=== PATIENT | male | born 1945 | race Caucasian/White ===

== ENCOUNTER 2016-04-08 10:26 | Outpatient (CLI) | payer MEDICARE, BC ==
[2016-04-08 11:41] LABS: T4 4.8 ug/dL (4.87-11.72)
[2016-04-08 18:56] LABS: Free T3 3.28 pg/mL (1.71-3.71)
== END 2016-04-08 10:27 | disposition home or self-care (01) ==
LOC: BURLAB 10:26
PROVIDERS: ATTEND Otolaryngology
DX: E03.9 Hypothyroidism, unspecified (principal); E53.8 Deficiency of other specified B group vitamins; E55.9 Vitamin D deficiency, unspecified
CPT/HCPCS: 36415; 82306; 82607; 84436; 84443; 84481

== ENCOUNTER 2016-05-17 11:58 | Outpatient (CLI) | payer MEDICARE, BC ==
[2016-05-17 12:58] LABS: Free T4 (Free Thyroxine) 0.77 ng/dL (0.70-1.48); Thyroid Stimulating Hormone 0.0158 uIU/mL (0.35-4.94)
[2016-05-17 13:55] LABS: Vitamin D, 25 Hydroxy 58.9 ng/mL (> 30.0)
[2016-05-17 18:00] LABS: Free T3 2.49 pg/mL (1.71-3.71)
== END 2016-05-17 11:59 | disposition home or self-care (01) ==
LOC: BURLAB 11:58
PROVIDERS: ATTEND Otolaryngology
DX: E03.9 Hypothyroidism, unspecified (principal)
CPT/HCPCS: 36415; 82306; 82607; 84439; 84443; 84481

== ENCOUNTER 2016-07-01 09:59 | Outpatient (CLI) | payer MEDICARE, BC ==
[2016-07-01 11:39] LABS: T4 4.9 ug/dL (4.87-11.72); Thyroid Stimulating Hormone Less than 0.0025 uIU/mL (0.35-4.94); Vitamin D, 25 Hydroxy 76.9 ng/ml (> 30.0)
== END 2016-07-01 10:00 | disposition home or self-care (01) ==
LOC: BURLAB 09:59
PROVIDERS: ATTEND Otolaryngology
DX: E03.9 Hypothyroidism, unspecified (principal); E53.8 Deficiency of other specified B group vitamins; E55.9 Vitamin D deficiency, unspecified
CPT/HCPCS: 36415; 82306; 82607; 84436; 84443; 84481

== ENCOUNTER 2016-09-17 10:43 | Outpatient (CLI) | payer MEDICARE, BC ==
[2016-09-17 12:26] LABS: Thyroid Stimulating Hormone Less than 0.0025 uIU/mL (0.35-4.94); Vitamin D, 25 Hydroxy 85.5 ng/ml (> 30.0)
[2016-09-17 17:29] LABS: T4 5.6 ug/dL (4.87-11.72)
== END 2016-09-17 10:44 | disposition home or self-care (01) ==
LOC: BURLAB 10:43
PROVIDERS: ATTEND Otolaryngology
DX: E03.9 Hypothyroidism, unspecified (principal); E53.8 Deficiency of other specified B group vitamins; E55.9 Vitamin D deficiency, unspecified
CPT/HCPCS: 36415; 82306; 82607; 84436; 84443; 84481

== ENCOUNTER 2020-01-05 10:10 | Emergency (ER) | payer MEDICARE, BC ==
[2020-01-05 11:22] LABS: ALT (SGPT) 21 U/L (8-55); AST (SGOT) 15 U/L (5-34); Albumin 3.9 g/dL (3.4-4.8); Alkaline Phosphatase 59 U/L (40-110); Anion Gap 14 mmol/L (10-20); BUN (Urea Nitrogen) 16 mg/dL (8.4-25.7); Bilirubin, Total 0.7 mg/dL (0.2-1.2); Calc. Creatinine Clearance 0 mL/min (70-130); Calcium 9.2 mg/dL (7.8-10.44); Carbon Dioxide 24 mmol/L (23-31); Chloride 107 mmol/L (98-107); Estimated GFR-MDRD 68; Globulin 2.4 g/dL (2.4-3.5); Glucose 111 mg/dL (83-110); Potassium 3.8 mmol/L (3.5-5.1); Protein, Total 6.3 g/dL (5.8-8.1); Sodium 141 mmol/L (136-145)
== END 2020-01-05 11:31 | disposition home or self-care (01) ==
LOC: BURERS 10:10
DX: M62.830 Muscle spasm of back (principal); I10 Essential (primary) hypertension; E03.9 Hypothyroidism, unspecified; Z79.899 Other long term (current) drug therapy; X58.XXXA Exposure to other specified factors, initial encounter
CPT/HCPCS: 80053; 84484; 93005

== ENCOUNTER 2021-11-23 13:09 | Emergency (ER) | payer MEDICARE, BC ==
[2021-11-23] MEDS ORDERED: Iopamidol 370 76% 100 ML VIAL FS ONE (13:10)
[2021-11-23 13:30] LABS: #Basophils 0.1 thou/uL (0.0-0.2); #Eosinphils 0.2 thou/uL (0.0-0.7); #Lymphocytes 2.3 thou/uL (1.20-3.40); #Monocytes 0.5 thou/uL (0.11-0.59); #Neutrophils 2.9 thou/uL (1.40-6.50); %Eosinophils 3.5 % (0.0-10.0); %Lymphocytes 38.4 % (21.0-51.0); %Monocytes 7.9 % (0.0-10.0); %Neutrophils 49.2 % (42.0-75.0); Hemoglobin 16.5 g/dL (14.0-18.0); Mean Corpuscular Hemoglobin 32.8 pg (27.0-31.0); Mean Corpuscular Volume 99.5 fL (78.0-98.0); Mean Platelet Volume 8.7 fL (7.4-10.4); Platelet Count 189 thou/uL (130-400); RBC Distribution Width 12.5 % (11.5-14.5); Red Blood Cell (RBC) Count 5.02 mill/uL (4.70-6.10); White Blood Cell (WBC) Count 5.9 thou/uL (4.8-10.8)
[2021-11-23 13:44] LABS: ALT (SGPT) Less than 7 U/L (8-55); AST (SGOT) 16 U/L (5-34); Albumin 4.1 g/dL (3.4-4.8); Alkaline Phosphatase 83 U/L (40-110); Anion Gap 11 mmol/L (10-20); BUN (Urea Nitrogen) 21 mg/dL (8.4-25.7); Bilirubin, Total 0.9 mg/dL (0.2-1.2); Calc. Creatinine Clearance 0 mL/min (70-130); Calcium 9.7 mg/dL (7.8-10.44); Carbon Dioxide 29 mmol/L (23-31); Chloride 107 mmol/L (98-107); Estimated GFR 60; Globulin 2.5 g/dL (2.4-3.5); Glucose 96 mg/dL (83-110); Potassium 3.8 mmol/L (3.5-5.1); Protein, Total 6.6 g/dL (5.8-8.1); Sodium 143 mmol/L (136-145)
[2021-11-23] MEDS ORDERED: Aspirin Chewable 81 MG TAB ONE (13:54)
[2021-11-23 14:48] LABS: SARS-CoV-2 NAA Rapid Test Not Detected (NotDetected)
== END 2021-11-23 14:26 | disposition short-term general hospital (02) ==
LOC: BURERS 13:09
DX: S00.81XA Abrasion of other part of head, initial encounter (principal); I63.9 Cerebral infarction, unspecified; R29.704 NIHSS score 4; I10 Essential (primary) hypertension; E05.90 Thyrotoxicosis, unspecified without thyrotoxic crisis or storm; E03.9 Hypothyroidism, unspecified; X58.XXXA Exposure to other specified factors, initial encounter; Y92.008 Other place in unspecified non-institutional (private) residence as the place of occurrence of the external cause; Z20.822 Contact with and (suspected) exposure to COVID-19; Z79.899 Other long term (current) drug therapy
CPT/HCPCS: 70450; 70496; 70498; 71045; 80053; 82962; 84484; 85025; 93005; 99285; U0002; 36415; 36416; Q9967

== ENCOUNTER 2021-12-20 18:27 | Emergency (ER) | payer MEDICARE, BC ==
[2021-12-20 18:59] LABS: #Eosinphils 0.1 thou/uL (0.0-0.7); #Lymphocytes 1.7 thou/uL (1.20-3.40); #Monocytes 0.4 thou/uL (0.11-0.59); %Basophils 0.7 % (0.0-1.0); %Eosinophils 1.2 % (0.0-10.0); %Lymphocytes 27.2 % (21.0-51.0); %Monocytes 6.9 % (0.0-10.0); Hemoglobin 15.9 g/dL (14.0-18.0); Mean Corpuscular HGB CONC 33.3 g/dL (32.0-36.0); Mean Corpuscular Hemoglobin 33.3 pg (27.0-31.0); Mean Corpuscular Volume 99.7 fl (78.0-98.0); Mean Platelet Volume 8.5 fL (7.4-10.4); Platelet Count 218 thou/uL (130-400); Red Blood Cell (RBC) Count 4.78 mill/uL (4.70-6.10); White Blood Cell (WBC) Count 6.3 thou/uL (4.8-10.8)
[2021-12-20 19:14] LABS: ALT (SGPT) 11 U/L (8-55); AST (SGOT) 19 U/L (5-34); Albumin 4.1 g/dL (3.4-4.8); Alkaline Phosphatase 76 U/L (40-110); Anion Gap 17 mmol/L (10-20); BUN (Urea Nitrogen) 21 mg/dL (8.4-25.7); Bilirubin, Total 0.6 mg/dL (0.2-1.2); Calc. Creatinine Clearance 0 mL/min (70-130); Calcium 9.2 mg/dL (7.8-10.44); Carbon Dioxide 22 mmol/L (23-31); Chloride 106 mmol/L (98-107); Estimated GFR 57; Globulin 2.5 g/dL (2.4-3.5); Glucose 104 mg/dL (83-110); Lipase 12 U/L (8-78); Protein, Total 6.6 g/dL (5.8-8.1); Sodium 141 mmol/L (136-145)
[2021-12-20] MEDS ORDERED: Amoxicillin/Potassium Clav 875 MG TAB ONE (19:54)
[2021-12-20] MEDS ORDERED: Morphine 4 MG/ML VIAL ONE (19:57)
== END 2021-12-20 20:06 | disposition home or self-care (01) ==
LOC: BURERS 18:27
DX: K57.32 Diverticulitis of large intestine without perforation or abscess without bleeding (principal); I10 Essential (primary) hypertension; E03.9 Hypothyroidism, unspecified; Z79.899 Other long term (current) drug therapy
CPT/HCPCS: 74176; 80053; 83605; 83690; 85025; 96374; J2270